=== PATIENT | male | born 1955 | race Caucasian/White ===

== ENCOUNTER 2017-11-07 22:09 | Inpatient (IN) | payer OTHER ==
[~2017-11-07] VITALS: Ht 175.3 cm; Wt 84.8 kg
[~2017-11-07 22:09] MED LIST: AMLODIPINE BESY10 MG PO; COREG3.125 M1 PO; DICLOFENAC SODI75 MG PO; ENDOCET 10-3251 EACH PO; FLEXERIL10 MG PO; LISINOPRIL40 MG PO; LO-DOSE ASPIRIN81 M1 PO; MEDROL DOSEPAK4 MG PO; PLAVIX75 MG PO; PRILOSEC OTC20 MG PO; SIMVASTATIN20 MG PO; TAMSULOSIN HCL0.4 MG PO; TRAMADOL HCL50 MG PO; TYLENOL ARTHRI650 MG PO; ZANTAC150 MG PO
[2017-11-08] MEDS ORDERED: TYLENOL EXTRA500 MG PO (06:00)
[2017-11-08] MEDS ORDERED: ATORVASTATIN CA80 MG PO (06:02)
[2017-11-08 06:25] VITALS: BP 152/70
[2017-11-08 15:02] VITALS: BP 163/94
[2017-11-08 16:02] VITALS: BP 146/73
[2017-11-08] MEDS ORDERED: TRAMADOL HCL50 MG PO (16:31)
[2017-11-08 18:02] VITALS: BP 143/83
[2017-11-08 20:02] VITALS: BP 153/85
[2017-11-09 00:02] VITALS: BP 146/79
[2017-11-09 05:27] LABS: HEMATOCRIT 41.2 % (38.0-50.0); MCH 31.7 PG (29.0-34.0); MCV 93.4 FL (86-99); PLATELET COUNT 217 K/uL (156-360); RBC DIS.WIDTH-CV 13.6 % (11.8-14.6); RBC DIS.WIDTH-SD 45.9 % (39-53); RED BLOOD COUNT 4.41 M/uL (4.00-5.50); WHITE BLOOD COUNT 16.7 K/uL (4.1-10.2)
[2017-11-09 05:39] VITALS: BP 154/79
[2017-11-09 05:46] LABS: TROP-I INTERPRETATION NEGATIVE; TROPONIN-I < 0.01 ng/mL (0.0-0.30)
[2017-11-09 06:06] LABS: CHLORIDE 105 MEQ/L (99-109); GFR ESTIMATE (CALCULATED) > 59 mL/min/ (58.99-99999); GLUCOSE 122 mg/dL (70-99); POTASSIUM 4.2 MEQ/L (3.7-5.4); SODIUM 137 MEQ/L (136-147); UREA NITROGEN (BUN) 12 mg/dL (9-23)
[2017-11-09 08:00] VITALS: BP 152/76
[2017-11-09 11:28] VITALS: BP 182/87
== END 2017-11-09 11:30 | disposition home or self-care (01) | DRG 39 ==
LOC: ENRESERV 22:09 → 2SOUTH 11-08 05:19 → EDSTATUS 11-08 10:34 → 2SOUTH 11-08 10:35 → 4WEST 11-08 10:52 → ENRESERV 11-08 12:27 → 4WEST 11-08 13:00 → SDC 11-08 13:10 → ENRESERV 11-09 09:33 → 4WEST 11-09 11:30
PROVIDERS: Surgery
PROC: 03CJ0ZZ Extirpation of Matter from Left Common Carotid Artery, Open Approach (ICD-10-PCS; principal; 2017-11-08)
PROC: 03UL0KZ Supplement Left Internal Carotid Artery with Nonautologous Tissue Substitute, Open Approach (ICD-10-PCS; principal; 2017-11-08)
PROC: 03CN0ZZ Extirpation of Matter from Left External Carotid Artery, Open Approach (ICD-10-PCS; principal; 2017-11-08)
PROC: 03CL0ZZ Extirpation of Matter from Left Internal Carotid Artery, Open Approach (ICD-10-PCS; principal; 2017-11-08)
DX: I65.22 Occlusion and stenosis of left carotid artery (principal); I10 Essential (primary) hypertension; I25.2 Old myocardial infarction; F17.210 Nicotine dependence, cigarettes, uncomplicated; I35.1 Nonrheumatic aortic (valve) insufficiency; I25.10 Atherosclerotic heart disease of native coronary artery without angina pectoris; E78.5 Hyperlipidemia, unspecified; Z95.5 Presence of coronary angioplasty implant and graft
CPT/HCPCS: 80048; 84484; 85027; 87641; C1768; J0131; J0330; J0360; J0690; J1100; J1170; J1644; J2250; J2405; J2720; J3010; J7120; S0020